=== PATIENT | female | born 1990 | race Hispanic/Latino ===

== ENCOUNTER 2020-12-24 13:17 | Emergency (ER) | payer SELFPAY ==
[2020-12-24] MEDS ORDERED: Lorazepam 2 MG/ML VIAL ONE (14:01)
== END 2020-12-24 14:45 | disposition home or self-care (01) ==
LOC: MADERS 13:17
DX: F41.9 Anxiety disorder, unspecified (principal)
CPT/HCPCS: 96372; 99283; J2060